=== PATIENT | female | born 1945 | race Caucasian/White ===

== ENCOUNTER 2022-02-14 13:29 | Observation (INO) | payer OTHER ==
[~2022-02-14] VITALS: Ht 162.6 cm; Wt 72.2 kg
[2022-02-14 13:53] LABS: BASOPHILS ABSOLUTE AUTO 0.06 K/mm3 (0.00-0.23); BASOPHILS PERCENT AUTO 1 % (0-2); EOSINOPHILS ABSOLUTE AUTO 0.04 K/mm3 (0.00-0.68); EOSINOPHILS PERCENT AUTO 0 % (0-6); Hematocrit 38.6 % (33.0-51.0); Hemoglobin 12.7 g/dL (11.5-16.0); IMMATURE GRAN ABSOLUTE AUTO 0.05 K/mm3 (0.00-0.10); IMMATURE GRAN PERCENT AUTO 0 % (0-1); LYMPHOCYTES ABSOLUTE AUTO 0.89 K/mm3 (0.84-5.20); LYMPHOCYTES PERCENT AUTO 7 % (21-46); MONOCYTES PERCENT AUTO 6 % (4-13); Mean Corpuscular HGB 32.8 pg (26.0-34.0); Mean Corpuscular HGB Conc 32.9 g/dL (31.5-36.5); Mean Corpuscular Volume 100 fL (80-100); Mean Platelet Volume 9.1 fL (9.1-12.4); NEUTROPHILS ABSOLUTE AUTO 10.71 K/mm3 (1.96-9.15); NEUTROPHILS PERCENT AUTO 85 % (41-73); Platelet Count 216 K/mm3 (150-400); RDW Coefficient Variation 12.8 % (11.7-14.2); Red Blood Cell Count 3.87 M/mm3 (3.80-5.20); White Blood Cell Count 12.55 K/mm3 (4.00-11.30)
[2022-02-14] MEDS ORDERED: LIPITOR80 MG PO (13:54)
[2022-02-14] MEDS ORDERED: CALCIUM CARBON650 MG PO (13:56)
[2022-02-14] MEDS ORDERED: FAMO20 PO (13:57)
[2022-02-14] MEDS ORDERED: DIGOX125 MC1 PO (13:57)
[2022-02-14] MEDS ORDERED: ELIQUIS5 M3 PO (13:57)
[2022-02-14] MEDS ORDERED: FISH OIL-VIT D1 EACH PO (13:58)
[2022-02-14] MEDS ORDERED: B-12500 MC2 PO (13:59)
[2022-02-14] MEDS ORDERED: ERGO50000 PO (13:59)
[2022-02-14] MEDS ORDERED: Acetaminophen325 M1 PO (14:00)
[2022-02-14 14:11] LABS: Albumin, Blood 3.4 g/dL (3.4-5.0); Albumin/Globulin Ratio 0.8 (0.8-1.8); Bilirubin, Total 0.8 mg/dL (0.1-1.0); Bun/Creatinine Ratio 16.8 (12.0-20.0); Calcium, Blood 9.2 mg/dL (8.5-10.1); Creatinine, Blood 0.95 mg/dL (0.40-1.00); Globulin, Blood 4.4 g/dL (2.2-4.0); Potassium, Blood 3.9 mmol/L (3.5-5.5); Total Protein, Blood 7.8 g/dL (6.4-8.2)
[2022-02-14 14:37] LABS: Source, Urine Straight Cath
[2022-02-14 14:47] LABS: Bilirubin, Urine Neg (Neg); Blood, Urine 1+ (Neg); Glucose Qualitative, Urine Neg (Neg); Ketones, Urine Neg (Neg); Leukocyte Esterase, Urine Neg (Neg); Nitrite, Urine Neg (Neg); Protein, Urine 2+ (Neg); Urobilinogen, Urine NORM (Normal)
[2022-02-14 14:53] LABS: Appearance, Urine Hazy (Clear); Color, Urine Pale Yellow (P-Yellow)
[2022-02-14 14:54] LABS: Amorphous Light (0-Heavy); Bacteria Few /hpf; Mucus Light (0-Heavy); Squamous Epithelial Cells Few /hpf (Few); White Blood Cells, Urine 0-2 /hpf (0-5); Yeast/Fungi Urine Few /hpf
[2022-02-14 14:55] LABS: Granular Casts 0-2 /lpf (0); Hyaline Casts 0-2 /lpf (0-2)
[2022-02-14 17:12] LABS: International Normalized Ratio 1.14; Prothrombin Time Results 11.9 Sec (9.7-11.5)
--- NOTE | 2022-02-14 18:51 | NUR ---
PT ADMITTED TO ROOM . H/R IRRREG. NO MUIRMER NOTED. LUNGS CLEAR, ON R/A. A/O X3 PLEASANT DENIES CHEST PAIN OR PRESSURE. ON HEPARIN DRIP. VERIFIED IS ON 15/ U/KG. 18.6 ML PER HR. SPOKE TO DR CHANDLER. HE HAS JUST ORDERED CARDIAC CONSULT. OKAY EAT TONITE. NPO MIDNITE FOR ANY POSSIBLE PROCEDURE. BED IN LOW POSITOIN, CALL LITE IN REACH, CALLS APPROP
[2022-02-15 04:24] LABS: BASOPHILS ABSOLUTE AUTO 0.06 K/mm3 (0.00-0.23); BASOPHILS PERCENT AUTO 1 % (0-2); EOSINOPHILS ABSOLUTE AUTO 0.17 K/mm3 (0.00-0.68); EOSINOPHILS PERCENT AUTO 2 % (0-6); Hematocrit 32.6 % (33.0-51.0); Hemoglobin 10.8 g/dL (11.5-16.0); IMMATURE GRAN ABSOLUTE AUTO 0.01 K/mm3 (0.00-0.10); IMMATURE GRAN PERCENT AUTO 0 % (0-1); LYMPHOCYTES ABSOLUTE AUTO 2.81 K/mm3 (0.84-5.20); LYMPHOCYTES PERCENT AUTO 31 % (21-46); MONOCYTES ABSOLUTE AUTO 0.95 K/mm3 (0.16-1.47); MONOCYTES PERCENT AUTO 10 % (4-13); Mean Corpuscular HGB 32.8 pg (26.0-34.0); Mean Corpuscular HGB Conc 33.1 g/dL (31.5-36.5); Mean Corpuscular Volume 99 fL (80-100); NEUTROPHILS ABSOLUTE AUTO 5.18 K/mm3 (1.96-9.15); NEUTROPHILS PERCENT AUTO 56 % (41-73); Platelet Count 192 K/mm3 (150-400); RDW Coefficient Variation 12.9 % (11.7-14.2); RDW Standard Deviation 47.4 fL (35.1-46.3); Red Blood Cell Count 3.29 M/mm3 (3.80-5.20); White Blood Cell Count 9.18 K/mm3 (4.00-11.30)
[2022-02-15 04:43] LABS: Anion Gap 6 mmol/L (6-16); Blood Urea Nitrogen 14 mg/dL (8-24); Bun/Creatinine Ratio 19.1 (12.0-20.0); CHOL/HDL RATIO 2.5; CO2, Blood 26 mmol/L (21-32); Calcium, Blood 8.5 mg/dL (8.5-10.1); Chloride, Blood 109 mmol/L (98-108); Cholesterol 115 mg/dL (50-200); Creatinine, Blood 0.73 mg/dL (0.40-1.00); Glomerular Filtration Rate >60 (60-); Glucose, Blood 95 mg/dL (70-99); HDL Cholesterol 46 mg/dL (>39); LDL/HDL RATIO 1.1; Low Density Lipoprotein Chol 51 mg/dL (0-110); Potassium, Blood 3.5 mmol/L (3.5-5.5); Sodium, Blood 141 mmol/L (136-145); Triglycerides 91 mg/dL (30-160); Very Low Density Lipoprot Chol 18 mg/dL (6-32)
--- NOTE | 2022-02-15 06:37 | NUR ---
PT IS ASLEEP THIS MORNING. PT CAME IN FROM THE ED AFTER HAVING A FALL AT HOME BUT WAS FOUND TO HAVE ELEVATED TROPONIN LEVELS. PT WAS ADMITTED FOR FURTHER WORKUP. PT TROPONIN LEVELS HAVE BEEN FLUCTUATING OVERNIGHT, NOTIFIED THE MD IN WHICH THEY PLACED ORDERS TO TREND UNTIL CARDIOLOGY CONSULT IN THE AM. PT CURRENTLY ON HEPARIN DRIP AND TOLERATING WELL, TITRATION PER PHARMACY. PT DID HAVE A COUPLE OF SECONDS OF PAUSED BEATS DURING THE SHIFT, MD NOTIFIED NO ORDERS RECIEVED. CONTINUING TO MONITOR. PT DID NOT C/O SOB, CHEST PAIN, OR N/V DURING THE SHIFT. OTHERWISE VITALS HAVE BEEN STABLE, TROP LEVELS CONTINUE TO BE IN THE CRITICAL LEVELS BUT ARE TRENDING IN THE RIGHT DIRECTION. PT ON RA, TELE- AFIB 70-80'S, PASSING GAS AND URINATING JUST FINE, PT CAN WALK SBA WITH FWW.
--- NOTE | 2022-02-15 08:00 | NUR ---
PT PLEASANT THIS MORNING. DENIES CHEST PAIN, PRESSURE, DISCOMFORT. IS PRESENTLY ON HEPARIN DRIP PER PHA RATES. VERIFIED. PENDING VISIT FROM DR KIRK, CARDIOLOGY. SHE A/O X3 TALKATIVE. H/R IRREGULAR, MURMER NOTED. PER TELE AFIB AT 69. LUNGS CLEAR, RESP EASY, UNLABORED. ON R.A. BT X4 LAST BM YEST PER PT. VOIDS BATHROOM. 1 LIGHT ASST. BED IN LOW POSITIOIN, CALL LITE IN REACH, BED ALARM ON FOR SAFETY
--- NOTE | 2022-02-15 09:59 | NUR ---
PER PHA, TO CONTINUE THE HEPARIN AT SAME RATE.
--- NOTE | 2022-02-15 12:09 | NUR ---
CLLED DR KIRK, CARDIOLOGY. NO INTERVENTION EXPECTED. OKAY RESTART DIET. D/C HEPARIN DRIP AND HAVE HOUSE START LOVENOX. CALLED TO DR RADFORD
--- NOTE | 2022-02-15 15:14 | NUR ---
DR KIRK, BAND SALVAGER, IN STATES OKAY RELEASE PER HIM. HE HAS FOLLOWUP IN MARCH ALREADY SCHEDULED. CALLED DR RADFORD, HE OKAY D/C IF [facility] CAN TAKE BACK, AND IF CAN PASS BASELINE AT [facility]YS [facility]. CALLED PHYS THERAPY, THEY TO COME SEE. CALLED [facility] TOLBERT, SAYS CAN TAKE PT BACK IF NO NEW MEDS AND IS TO BASELINE. PHYSICAL THERAPY CAME TO SEE. SHE AT [facility], WALKED OKAY WITH FWW. CALLED DR RADFORD, UPDATED ON PHYSICAL THERAPY, [facility] NAIL[facility]. HE STATES NO NEW MEDS. WILL WORK ON D/C. WE WILL NEED TRANSPORT. UPDATED INTELLIGENCE DIRECTOR
--- NOTE | 2022-02-15 17:45 | NUR ---
DISCHARGE REVIEWED WITH PT. SHE VERBALIZED UNDERSTANDING MEDS AND INST. PT PULLED HER OWN IV. INTACT. I WRAPPED. PT WAS ON HEPARIN EARLIER IN DAY. DID BLEED SOME. BLEEDING HAS STOPPED. TELE REMOVED AND RETURNED. CALLED AND TALKED TO DAUGHTER TO UPDATE PLAN. COPY OF DISCHARGE FAXED TO [facility]. PT TO BE WHEELED HOME BY [employer] [facility].
--- NOTE | 2022-02-15 18:01 | NUR ---
PT TRANSPORT OUT DOOR AT 1750
== END 2022-02-15 17:54 | disposition home or self-care (01) ==
LOC: ER 13:29 → MEDS 13:30
PROVIDERS: Emergency Medicine; ADMIT Internal Medicine
DX: I21.4 Non-ST elevation (NSTEMI) myocardial infarction (principal); I48.20 Chronic atrial fibrillation, unspecified; Z79.01 Long term (current) use of anticoagulants; I08.0 Rheumatic disorders of both mitral and aortic valves; I65.22 Occlusion and stenosis of left carotid artery; I25.10 Atherosclerotic heart disease of native coronary artery without angina pectoris; I25.2 Old myocardial infarction; K21.9 Gastro-esophageal reflux disease without esophagitis; D72.829 Elevated white blood cell count, unspecified; Z86.73 Personal history of transient ischemic attack (TIA), and cerebral infarction without residual deficits
CPT/HCPCS: 36415; 51701; 71045; 80048; 80053; 80061; 81001; 83036; 83880; 84443; 84484; 85025; 85610; 85730; 87086; 93005; 93010; 93308; 93321; 96374; 96376; 97161; 97530; 99285-25; A9270; G0378; J1644; J7030

== ENCOUNTER → 2023-01-06 | Outpatient (CLI) | payer OTHER ==
[~2023-01-06] MED LIST: Acetaminophen325 M1 PO; B-12500 MC2 PO; CALCIUM CARBON650 MG PO; DIGOX125 MC1 PO; ELIQUIS5 M3 PO; ERGO50000 PO; FAMO20 PO; FISH OIL-VIT D1 EACH PO; LIPITOR80 MG PO
[2023-01-06 15:47] LABS: Appearance, Urine Clear (Clear); Bilirubin, Urine Neg (Neg); Blood, Urine Neg (Neg); Color, Urine Yellow (P-Yellow); Glucose Qualitative, Urine Neg (Neg); Ketones, Urine 1+ (Neg); Leukocyte Esterase, Urine 2+ (Neg); Nitrite, Urine Neg (Neg); Protein, Urine 1+ (Neg); Specific Gravity, Urine 1.015 (1.003-1.022); Urobilinogen, Urine NORM (Normal)
[2023-01-06 15:57] LABS: Red Blood Cells, Urine 0-2 /hpf (0-2)
[2023-01-06 15:58] LABS: Bacteria Few /hpf; Squamous Epithelial Cells Few /hpf (Few)
== END | disposition home or self-care (01) ==
LOC: LAB 12:35 → LAB SHORT 12:35
PROVIDERS: Physician Assistant
DX: N39.0 Urinary tract infection, site not specified (principal)
CPT/HCPCS: 81001; 87086

== ENCOUNTER 2023-02-28 06:46 | Emergency (ER) | payer OTHER ==
[~2023-02-28] VITALS: Ht 154.9 cm; Wt 72.6 kg
[2023-02-28 09:11] LABS: BASOPHILS ABSOLUTE AUTO 0.03 K/mm3 (0.00-0.23); BASOPHILS PERCENT AUTO 0 % (0-2); EOSINOPHILS ABSOLUTE AUTO 0.01 K/mm3 (0.00-0.68); EOSINOPHILS PERCENT AUTO 0 % (0-6); Hematocrit 30.9 % (33.0-51.0); Hemoglobin 10.1 g/dL (11.5-16.0); IMMATURE GRAN ABSOLUTE AUTO 0.03 K/mm3 (0.00-0.10); IMMATURE GRAN PERCENT AUTO 0 % (0-1); LYMPHOCYTES ABSOLUTE AUTO 1.38 K/mm3 (0.84-5.20); LYMPHOCYTES PERCENT AUTO 12 % (21-46); MONOCYTES ABSOLUTE AUTO 1.18 K/mm3 (0.16-1.47); MONOCYTES PERCENT AUTO 10 % (4-13); Mean Corpuscular HGB 32.2 pg (26.0-34.0); Mean Corpuscular HGB Conc 32.7 g/dL (31.5-36.5); Mean Corpuscular Volume 98 fL (80-100); Mean Platelet Volume 9.4 fL (9.1-12.4); NEUTROPHILS ABSOLUTE AUTO 9.19 K/mm3 (1.96-9.15); NEUTROPHILS PERCENT AUTO 78 % (41-73); Platelet Count 184 K/mm3 (150-400); RDW Coefficient Variation 13.9 % (11.7-14.2); Red Blood Cell Count 3.14 M/mm3 (3.80-5.20); White Blood Cell Count 11.82 K/mm3 (4.00-11.30)
[2023-02-28 09:29] LABS: Albumin, Blood 3.6 g/dL (3.4-5.0); Albumin/Globulin Ratio 0.8 (0.8-1.8); Bilirubin, Total 1.1 mg/dL (0.1-1.0); Bun/Creatinine Ratio 24.1 (12.0-20.0); Calcium, Blood 9.3 mg/dL (8.5-10.1); Creatinine, Blood 0.96 mg/dL (0.40-1.00); Globulin, Blood 4.3 g/dL (2.2-4.0); Potassium, Blood 4.1 mmol/L (3.5-5.5); Total Protein, Blood 7.9 g/dL (6.4-8.2)
[2023-02-28 09:55] LABS: Source, Urine Straight Cath
[2023-02-28 10:06] LABS: Bilirubin, Urine Neg (Neg); Blood, Urine Neg (Neg); Glucose Qualitative, Urine Neg (Neg); Ketones, Urine Neg (Neg); Leukocyte Esterase, Urine Neg (Neg); Nitrite, Urine Neg (Neg); Protein, Urine 2+ (Neg); Urobilinogen, Urine NORM (Normal)
[2023-02-28 10:35] LABS: Appearance, Urine Hazy (Clear); Color, Urine Yellow (P-Yellow)
[2023-02-28 10:36] LABS: Mucus Light (0-Heavy); Squamous Epithelial Cells Few /hpf (Few)
[2023-02-28 10:37] LABS: Bacteria Rare /hpf; Red Blood Cells, Urine 0-2 /hpf (0-2)
[2023-02-28] MEDS ORDERED: OXYC5 PO (10:51)
[2023-02-28] MEDS ORDERED: Acetaminophen650 M1 PO (10:51)
== END 2023-02-28 11:48 | disposition home or self-care (01) ==
LOC: ER 06:46
PROVIDERS: Emergency Medicine
DX: S42.251A Displaced fracture of greater tuberosity of right humerus, initial encounter for closed fracture (principal); S42.211A Unspecified displaced fracture of surgical neck of right humerus, initial encounter for closed fracture; M25.512 Pain in left shoulder; W01.0XXA Fall on same level from slipping, tripping and stumbling without subsequent striking against object, initial encounter
CPT/HCPCS: 36415; 70450; 72125; 73030; 80053; 81001; 85025; 93005; 93010; 96374; 96375; 99284-25; J1885; J2270; P9612

== ENCOUNTER 2023-02-28 13:43 | Emergency (ER) | payer OTHER ==
[~2023-02-28] VITALS: Ht 162.6 cm; Wt 69.0 kg
[~2023-02-28 13:43] MED LIST changes: +Acetaminophen650 M1 PO; +OXYC5 PO
[2023-02-28 15:06] LABS: BASOPHILS ABSOLUTE AUTO 0.04 K/mm3 (0.00-0.23); BASOPHILS PERCENT AUTO 0 % (0-2); EOSINOPHILS ABSOLUTE AUTO 0.02 K/mm3 (0.00-0.68); EOSINOPHILS PERCENT AUTO 0 % (0-6); Hematocrit 28.7 % (33.0-51.0); Hemoglobin 9.5 g/dL (11.5-16.0); IMMATURE GRAN ABSOLUTE AUTO 0.04 K/mm3 (0.00-0.10); IMMATURE GRAN PERCENT AUTO 0 % (0-1); LYMPHOCYTES PERCENT AUTO 16 % (21-46); MONOCYTES ABSOLUTE AUTO 1.39 K/mm3 (0.16-1.47); MONOCYTES PERCENT AUTO 14 % (4-13); Mean Corpuscular HGB 32.8 pg (26.0-34.0); Mean Corpuscular HGB Conc 33.1 g/dL (31.5-36.5); Mean Corpuscular Volume 99 fL (80-100); Mean Platelet Volume 9.6 fL (9.1-12.4); NEUTROPHILS ABSOLUTE AUTO 6.85 K/mm3 (1.96-9.15); NEUTROPHILS PERCENT AUTO 69 % (41-73); Platelet Count 172 K/mm3 (150-400); RDW Coefficient Variation 13.9 % (11.7-14.2); RDW Standard Deviation 50.1 fL (35.1-46.3); White Blood Cell Count 9.94 K/mm3 (4.00-11.30)
[2023-02-28 15:11] LABS: Albumin, Blood 3.3 g/dL (3.4-5.0); Albumin/Globulin Ratio 0.8 (0.8-1.8); Bilirubin, Total 1.1 mg/dL (0.1-1.0); Bun/Creatinine Ratio 23.9 (12.0-20.0); Calcium, Blood 8.9 mg/dL (8.5-10.1); Creatinine, Blood 1.09 mg/dL (0.40-1.00); Potassium, Blood 4.4 mmol/L (3.5-5.5); Total Protein, Blood 7.3 g/dL (6.4-8.2)
== END 2023-02-28 19:50 | disposition home or self-care (01) ==
LOC: ER 13:43
PROVIDERS: Emergency Medicine
DX: R55 Syncope and collapse (principal)
CPT/HCPCS: 36415; 70450; 73030; 73060; 80053; 83880; 84484; 85025; 93005; 93010; 99285-25; J7030

== ENCOUNTER 2023-03-04 16:36 | Emergency (ER) | payer OTHER ==
[~2023-03-04] VITALS: Ht 167.6 cm; Wt 77.1 kg
[2023-03-04] MEDS ORDERED: OXAYDO5 M1 PO (22:32)
== END 2023-03-04 23:38 | disposition home or self-care (01) ==
LOC: ER 16:36
DX: S42.422A Displaced comminuted supracondylar fracture without intercondylar fracture of left humerus, initial encounter for closed fracture (principal); W19.XXXA Unspecified fall, initial encounter; Z79.899 Other long term (current) drug therapy; Z79.01 Long term (current) use of anticoagulants
CPT/HCPCS: 29105; 36415; 73060; 73070; 73100; 93005; 93010; 99285-25

== ENCOUNTER 2023-03-27 11:13 | Observation (INO) | payer OTHER ==
[~2023-03-27] VITALS: Ht 162.6 cm; Wt 70.3 kg
[2023-03-27] VITALS (17 sets, daily range): BP systolic 78–146; BP diastolic 28–96
[~2023-03-27 11:13] MED LIST changes: +OXAYDO5 M1 PO
--- NOTE | 2023-03-27 13:03 | NUR ---
PRE-OP NOTE PT A&OX4 BUT SLEEPY, FOLLOWS COMMANDS AND ANSWERS QUESTIONS APPROPRIATELY. VSS, BREATHING RA, NO COMPLAINTS. MARKED BRUISING ON R UPPER ARM TO ELBOW, PT ARRIVED WEARING A SLING ON R ELBOW AND SPLINT ON L ELBOW. EDEMATOUS ABOVE SANDRA WRAP ON R ARM AND SLIGHT PINK COLOR TO SKIN UNDERNEATH AND JUST ABLVE ELBOW ON SWELLING. SWELLING TO BLE, SASHA HOSE PLACED IN ADDITION TO SCD PER DR HARP. Patient confirms NPO status and agrees with scheduled surgery.PT ARRIVED IN AND REQUIRED 2 PERSON ASSIST TO MOVE. DENTURES REMOVED PRIOR TO SURGERY AND SENT TO PACU, IN BRONCH ROOM IN SDU, ALL OTHER BELONGINGS PLACED UNDER STRETCHER. Pre-Op teaching done. Pt verbalizes understanding. Patient States Post-Procedure ride home has been arranged.
[2023-03-28 00:33] VITALS: BP 90/76
[2023-03-28 05:29] VITALS: BP 83/46
[2023-03-28 05:30] VITALS: BP 93/53
[2023-03-28 07:02] VITALS: BP 97/60
--- NOTE | 2023-03-28 07:10 | NUR ---
SHIFT SUMMARY PT POD 0 R ORIF. PT HAS DONE WELL OVERNIGHT PAIN INITIALLY AFTER COMING BACK FROM OR, MEDICATED WITH OXYCODONE WITH AFFECT. PT BLOOD PRESSURES HAVE BEEN SOFT, MAP ABOVE 65. DR. HARP WAS MADE AWARE OF PT BLOOD PRESSURE BEFORE SHE LEFT PACU, AND SHE OK'D FOR PT TO LEAVE PACU AND TO BE ADMITTED WITH LOWER BLOOD PRESSURES, PT HAS BEEN ASYMPTOMATIC. PT TOLERATING PO INTAKE AND HAS BEEN VOIDING. PT OCCASIONALLY INCONTINENT OF URINE. NON WEIGHT BEARING TO RIGHT ARM. ARM WRAPED IN SANDRA WRAP, AND EXT ELEVATED. PT REPORTS SOME NUMBNESS BUT CAN STILL FEEL SENSATION ABLE TO WIGGLE FINGERS. NO ACUTE CHANGES OVERNIGHT, BED IN LOWEST POSITION, CALL LIGHT WITHIN REACH.
[2023-03-28 08:53] VITALS: BP 100/55
[2023-03-28] MEDS ORDERED: OXYC5 (08:57)
[2023-03-28] MEDS ORDERED: OXYC5 PO (08:58)
[2023-03-28 09:52] LABS: BASOPHILS ABSOLUTE AUTO 0.03 K/mm3 (0.00-0.23); BASOPHILS PERCENT AUTO 0 % (0-2); EOSINOPHILS PERCENT AUTO 0 % (0-6); Hematocrit 25.7 % (33.0-51.0); IMMATURE GRAN ABSOLUTE AUTO 0.03 K/mm3 (0.00-0.10); IMMATURE GRAN PERCENT AUTO 0 % (0-1); LYMPHOCYTES ABSOLUTE AUTO 1.33 K/mm3 (0.84-5.20); LYMPHOCYTES PERCENT AUTO 13 % (21-46); MONOCYTES ABSOLUTE AUTO 1.03 K/mm3 (0.16-1.47); MONOCYTES PERCENT AUTO 10 % (4-13); Mean Corpuscular HGB 32.9 pg (26.0-34.0); Mean Corpuscular HGB Conc 31.1 g/dL (31.5-36.5); Mean Corpuscular Volume 106 fL (80-100); Mean Platelet Volume 9.2 fL (9.1-12.4); NEUTROPHILS ABSOLUTE AUTO 7.85 K/mm3 (1.96-9.15); NEUTROPHILS PERCENT AUTO 76 % (41-73); Platelet Count 221 K/mm3 (150-400); RDW Coefficient Variation 15.9 % (11.7-14.2); RDW Standard Deviation 61.8 fL (35.1-46.3); Red Blood Cell Count 2.43 M/mm3 (3.80-5.20); White Blood Cell Count 10.27 K/mm3 (4.00-11.30)
--- NOTE | 2023-03-28 12:06 | NUR ---
DISCHARGE SUMMARY PT A&OX4, VSS/RA, KIRSTEN PO, VOIDING, AMB 2 PP MOD ASSIST/TRANSFER TO BSC/WC, ASSISTED WITH DRESSING, PAIN MANAGED, IV DC'D. DC INS PROVIDED. PT REP UNDERSTANDING THOSE INSTRUCTIONS; INSTRUCTIONS REVIEWED WITH ROJAS CRUZ CALLICOON ON TELEPHONE: NAVI NWB, RUE SLING ON, LUE DRESSING CDI/ELEVATED ON PILLOW. LEFT VIA PT'S WC WITH ALL PERSONAL POSSESSIONS INCLUDING DC PACKET/1 NARC SCRIPT FOR TRANSPORT WITH DC [email or web address] [facility] VAN (HEALTH AND SAFETY INSTRUCTOR/ROSALIND).
--- NOTE | 2023-03-30 14:42 | NUR ---
03/30/23 1442 Alize Bhagat VERIFICATIONS: EDIT CHART.
== END 2023-03-28 11:55 | disposition home or self-care (01) ==
LOC: ORSCMMR 11:13 → ORD 12:45 → SURS 22:40 → ORSCMMR 22:40 → SURS 22:41
PROVIDERS: ADMIT Orthopaedic Surgery
DX: S42.422A Displaced comminuted supracondylar fracture without intercondylar fracture of left humerus, initial encounter for closed fracture (principal); S42.211A Unspecified displaced fracture of surgical neck of right humerus, initial encounter for closed fracture; W18.30XA Fall on same level, unspecified, initial encounter; I48.91 Unspecified atrial fibrillation; I10 Essential (primary) hypertension; I25.2 Old myocardial infarction; Z79.899 Other long term (current) drug therapy
CPT/HCPCS: 36415; 85025; 97110; 97116; 97162; A9270; C1713; C1769; J0690; J1100; J1885; J2370; J2405; J2704; J3010; J7120

== ENCOUNTER → 2023-08-25 | Outpatient (CLI) | payer OTHER ==
[~2023-08-25] MED LIST changes: +OXYC5
[2023-08-26 16:54] LABS: Appearance, Urine Clear (Clear); Bilirubin, Urine Neg (Neg); Blood, Urine 1+ (Neg); Glucose Qualitative, Urine Neg (Neg); Ketones, Urine Neg (Neg); Leukocyte Esterase, Urine 3+ (Neg); Nitrite, Urine Neg (Neg); Protein, Urine 1+ (Neg); Specific Gravity, Urine 1.015 (1.003-1.022); Urobilinogen, Urine NORM (Normal)
[2023-08-26 17:09] LABS: Color, Urine Pale Yellow (P-Yellow)
[2023-08-26 17:10] LABS: Bacteria Few /hpf; Squamous Epithelial Cells Few /hpf (Few)
== END | disposition home or self-care (01) ==
LOC: LAB SHORT 15:30 → LAB 15:30 → LAB SHORT 08-26 14:39
PROVIDERS: Physician Assistant
DX: N39.0 Urinary tract infection, site not specified (principal)
CPT/HCPCS: 81001; 87086

== ENCOUNTER → 2023-12-07 | Outpatient (CLI) | payer OTHER ==
[2023-12-08 12:37] LABS: Source, Urine Clean Catch
[2023-12-08 14:09] LABS: Appearance, Urine Clear (Clear); Bilirubin, Urine Neg (Neg); Blood, Urine Neg (Neg); Color, Urine Yellow (P-Yellow); Glucose Qualitative, Urine Neg (Neg); Ketones, Urine Neg (Neg); Leukocyte Esterase, Urine 1+ (Neg); Nitrite, Urine Neg (Neg); Protein, Urine 2+ (Neg); Urobilinogen, Urine NORM (Normal)
[2023-12-08 14:19] LABS: Bacteria Few /hpf; Red Blood Cells, Urine 0-2 /hpf (0-2); Squamous Epithelial Cells Few /hpf (Few)
== END | disposition home or self-care (01) ==
LOC: LAB 05:30 → LAB SHORT 05:30
PROVIDERS: Physician Assistant
DX: N39.0 Urinary tract infection, site not specified (principal)
CPT/HCPCS: 81001; 87086

== ENCOUNTER 2024-01-16 16:58 | Inpatient (IN) | payer OTHER ==
[~2024-01-16] VITALS: Ht 162.6 cm; Wt 67.6 kg
[2024-01-16] VITALS (13 sets, daily range): BP systolic 82–134; BP diastolic 32–60
[2024-01-16 17:35] LABS: Calcium, Ionized (POC) 0.99 mmol/L (1.10-1.46); Chloride (POC) 105 mmol/L (98-108); Creatinine (POC) 0.9 mg/dL (0.6-1.0); Glucose (ISTAT POC) 124 mg/dL (70-99); Hemoglobin (POC) 10.5 g/dL (12.0-16.0); Potassium (POC) 6.2 mmol/L (3.5-5.5); Sodium (POC) 136 mmol/L (135-148); Total CO2 (POC) 24 mmol/L (21-32)
[2024-01-16] MEDS ORDERED: Dextrose 50% 50 ML Syringe IV ONE (17:35)
[2024-01-16] MEDS ORDERED: Sodium Zirconium Cyclosilicate 10 GM Packet PO ONE (17:35)
[2024-01-16] MEDS ORDERED: Calcium Gluconate 10% 100 MG/ML INJ IV ONE (17:35)
[2024-01-16] MEDS ORDERED: Sodium Bicarb 8.4% 1 MEQ/ML 50 ML Vial IV ONE (17:35)
[2024-01-16] MEDS ORDERED: Insulin Regular 100 Unit/ML 1ML Dose IV ONE (17:40)
[2024-01-16] MEDS ORDERED: Calcium Gluconate 10% 1,000 MG in NS 50 ML IV ONE (17:45)
[2024-01-16 17:59] LABS: BASOPHILS ABSOLUTE AUTO 0.04 K/mm3 (0.00-0.23); BASOPHILS PERCENT AUTO 1 % (0-2); EOSINOPHILS ABSOLUTE AUTO 0.11 K/mm3 (0.00-0.68); EOSINOPHILS PERCENT AUTO 2 % (0-6); Hematocrit 35.2 % (33.0-51.0); Hemoglobin 11.4 g/dL (11.5-16.0); IMMATURE GRAN ABSOLUTE AUTO 0.02 K/mm3 (0.00-0.10); IMMATURE GRAN PERCENT AUTO 0 % (0-1); LYMPHOCYTES ABSOLUTE AUTO 1.22 K/mm3 (0.84-5.20); LYMPHOCYTES PERCENT AUTO 17 % (21-46); MONOCYTES PERCENT AUTO 10 % (4-13); Mean Corpuscular HGB 31.7 pg (26.0-34.0); Mean Corpuscular HGB Conc 32.4 g/dL (31.5-36.5); Mean Corpuscular Volume 98 fL (80-100); Mean Platelet Volume 9.7 fL (9.1-12.4); NEUTROPHILS ABSOLUTE AUTO 5.12 K/mm3 (1.96-9.15); NEUTROPHILS PERCENT AUTO 71 % (41-73); Platelet Count 151 K/mm3 (150-400); RDW Coefficient Variation 13.9 % (11.7-14.2); RDW Standard Deviation 49.4 fL (35.1-46.3); White Blood Cell Count 7.21 K/mm3 (4.00-11.30)
[2024-01-16] MEDS ORDERED: Dopamine/Dextrose 250 ML IV SCH (18:15)
[2024-01-16 18:26] LABS: Magnesium, Blood 1.8 mg/dL (1.6-2.4)
[2024-01-16 18:35] LABS: Alanine Aminotransfer (ALT/SGP 96 U/L (12-78); Albumin, Blood 3.1 g/dL (3.4-5.0); Albumin/Globulin Ratio 0.7 (0.8-1.8); Alk Phos 93 U/L (50-136); Anion Gap 3 mmol/L (6-16); Aspartate Aminotrans (AST/SGOT 138 U/L (12-37); Bilirubin, Total 0.7 mg/dL (0.1-1.0); Blood Urea Nitrogen 23 mg/dL (8-24); Bun/Creatinine Ratio 25.6 (12.0-20.0); CO2, Blood 27 mmol/L (21-32); Chloride, Blood 106 mmol/L (98-108); Digoxin (Lanoxin) 0.67 ug/mL (0.80-2.00); Globulin, Blood 4.4 g/dL (2.2-4.0); Glomerular Filtration Rate 66 (60-); Glucose, Blood 133 mg/dL (70-99); Potassium, Blood 4.4 mmol/L (3.5-5.5); Sodium, Blood 136 mmol/L (136-145); Total Protein, Blood 7.5 g/dL (6.4-8.2)
[2024-01-16] MEDS ORDERED: FLU VACC QS2023-24(6MOS UP)/PF 60 MCG/0.5 ML SYRINGE IM ONE (18:45)
[2024-01-16] MEDS ORDERED: NS 1,000 ML IV SCH (19:00)
[2024-01-16] MEDS ORDERED: Phentolamine Mesylate 5 MG/2 ML Vial SC ONE (20:25)
[2024-01-16] MEDS ORDERED: Melatonin 5 MG Tablet PO PRN (21:15)
[2024-01-16] MEDS ORDERED: NS 1,000 ML IV ONE ×2 (21:25→22:52)
--- NOTE | 2024-01-16 21:52 | NUR ---
ASSUMPTION OF CARE REPORT RECEIVED FROM WOVEN WOOD SHADE ASSEMBLER. PT TO ICU VIA HOSPITAL BED, TRANSFERRED TO ICU BED VIA SLIDER SHEET. PT ALERT AND ORIENTED X 4, SLEEPY AT TIMES. PT ANSWERS QUESTIONS APPRORPRIATELY, FOLLOWS COMMANDS AND IS ABLE TO MAKE NEEDS KNOWN. PT MOVES ALL EXTREMITIES EQUALLY BILATERALLY. HR 50'S AFIB, DR. BAR AT THE BEDSIDE, DOPAMINE INFUSING AT 5MCG/KG/MIN, DECREASED TO 2MCG/KG/MIN PER . PT DENIES CP OR PRESSURE. PT ON 2L VIA NC, OXYGEN SATURATION >95%, LUNG SOUDNS CLEAR THROUGHOUT. ABD SOFT AND NONTENDER BOWEL TONES ACTIVE IN ALL FOUR QUADRATNS. PIV TO RIGHT UPPER ARM, AND RIGHT FOREARM. BED IN LOWEST POSITION, CALL LIGHT WITHIN REACH, CARE CONTINUES
[2024-01-16] MEDS ORDERED: Atropine Sulfate 0.1 MG/ML 10ML SYR ONE (21:57)
--- NOTE | 2024-01-16 22:15 | NUR ---
ASSISTED IN ROOM SECONDARY TO PT HAVING PAUSES, AND BECOMING SYMPTOMATIC. ZOLL PLACE TO PACE AT 70 WITH MILIAMPS AT 6 FOR CAPTURE. WITH SPEAKING WITH LINOTYPE MACHINIST MYRTLE - HOSPITALIST, REDUCED RATE TO 50 AND INCREASE IN DOPAMINE MADE. SEE PRIMARY RN'S NOTES FOR DETAILS. PT OBSERVED HAVING SEIZURE-LIKE EPISODE WITH FACIAL TWITCHING FOR APPROX 10-20 SECONDS. PT DOES NOT RESPOND TO VERBAL AT TIME. THIS ACTIVITY COORELATES WITH PAUSES NOTED PER CARDIAC MONITORING.
--- NOTE | 2024-01-16 22:16 | NUR ---
PT UPDATE PT HAVING MORE ECTOPY WITH PAUSES, LONGEST MEASURED AT 8-9 SECONDS. PT HAD ONE EPISODE OF UNRESPONSIVENESS WITH SIEZURE LIKE ACTIVITY OTHER THAN THE ONE EPISDOE PT REMAINS ALERT. CALL PLACED TO DR. HUFFMAN. DR. HUFFMAN TO COME IN FOR POSSIBLE TEMPORARY TRANSVENOUS PACEMAKER. ZOLL MONITOR PLACED, DOPAMINE INCREASED TO 5MCG/KG/MIN THEN TO 8MCG/KG/MIN PER MYRTLE BARBERING TEACHER. PT DENIES CP OR PRESSURE.
[2024-01-16] MEDS ORDERED: Heparin Sodium 1000 Units/ML 10ML MDV ONE (22:32)
[2024-01-16] MEDS ORDERED: NS 250 ML IV ONE (22:32)
--- NOTE | 2024-01-16 22:41 | NUR ---
PT UPDATE PT TO [facility] AT 2240 FOR TEMPORARY PACEMAKER PALCEMENT. ATTEMPTED TO CALL DAUGHTER, LEFT MESSAGE ASKING FOR A CALL BACK.
[2024-01-16] MEDS ORDERED: Midazolam HCl 1MG / ML 2ML Vial ONE (22:52)
[2024-01-16] MEDS ORDERED: FentaNYL Citrate 50 MCG/ML 2 ML Injection ONE (22:52)
[2024-01-16] MEDS ORDERED: CeFAZolin Sodium 2,000 MG VIAL ONE (22:53)
[2024-01-16] MEDS ORDERED: NS 100 ML IV ONE (22:53)
--- NOTE | 2024-01-16 23:41 | NUR ---
PT UPDATE PT BACK TO ICU FROM [facility] AT 2328 VIA HOSPITAL BED. PT SLEEPY BUT AROUSABLE. DOPAMINE OFF DURING PROCEDURE AT 2307. HR 50, PACED. TEMPORARY PACEMAKER IN PLACE TO [facility], AT 63CM. SETTINGS, RATE OF 50, OUTPUT 2.5 SENSE OF 2. BED IN LOWEST POSITION, CALL LIGHT WITHIN REACH, CARE CONTINUES.
[2024-01-17] VITALS (94 sets, daily range): BP systolic 86–153; BP diastolic 34–108
[2024-01-17] MEDS ORDERED: Acetaminophen 325 MG TABLET PO PRN (00:30)
[2024-01-17 04:03] LABS: BASOPHILS ABSOLUTE AUTO 0.03 K/mm3 (0.00-0.23); BASOPHILS PERCENT AUTO 0 % (0-2); EOSINOPHILS ABSOLUTE AUTO 0.15 K/mm3 (0.00-0.68); EOSINOPHILS PERCENT AUTO 2 % (0-6); Hematocrit 32.5 % (33.0-51.0); Hemoglobin 10.7 g/dL (11.5-16.0); IMMATURE GRAN ABSOLUTE AUTO 0.02 K/mm3 (0.00-0.10); IMMATURE GRAN PERCENT AUTO 0 % (0-1); LYMPHOCYTES ABSOLUTE AUTO 1.93 K/mm3 (0.84-5.20); LYMPHOCYTES PERCENT AUTO 23 % (21-46); MONOCYTES ABSOLUTE AUTO 0.77 K/mm3 (0.16-1.47); MONOCYTES PERCENT AUTO 9 % (4-13); Mean Corpuscular HGB 32.1 pg (26.0-34.0); Mean Corpuscular HGB Conc 32.9 g/dL (31.5-36.5); Mean Corpuscular Volume 98 fL (80-100); Mean Platelet Volume 9.7 fL (9.1-12.4); NEUTROPHILS ABSOLUTE AUTO 5.49 K/mm3 (1.96-9.15); NEUTROPHILS PERCENT AUTO 65 % (41-73); Platelet Count 137 K/mm3 (150-400); RDW Coefficient Variation 13.8 % (11.7-14.2); RDW Standard Deviation 48.8 fL (35.1-46.3); Red Blood Cell Count 3.33 M/mm3 (3.80-5.20); White Blood Cell Count 8.39 K/mm3 (4.00-11.30)
[2024-01-17 04:29] LABS: Albumin, Blood 2.9 g/dL (3.4-5.0); Albumin/Globulin Ratio 0.8 (0.8-1.8); Bilirubin, Total 0.8 mg/dL (0.1-1.0); Bun/Creatinine Ratio 27.7 (12.0-20.0); Calcium, Blood 8.7 mg/dL (8.5-10.1); Creatinine, Blood 0.83 mg/dL (0.40-1.00); Globulin, Blood 3.7 g/dL (2.2-4.0); Potassium, Blood 4.1 mmol/L (3.5-5.5); Total Protein, Blood 6.6 g/dL (6.4-8.2)
--- NOTE | 2024-01-17 05:40 | NUR ---
SHIFT SUMMARY PT RESTING IN BED, SLEEPING BUT AROUSABLE. PT ANSWERS QUESTIONS APPROPRIATELY, FOLLOWS COMMANDS AND IS ABLE TO MAKE NEEDS KNOWN. PT MOVES ALL EXTREMITIES EQUALLY BILATERALLY. HR 50'S PACED, TEMPORARY PACER IN PLACE AT 63, DRESSING CLEAN AND INTACT, SETTINGS: RATE 50, OUTPUT 3.0, SENSE 2.0. OUTPUT INCREASED FROM 2.5 TO 3.0 DUE TO LOSS OF CAPTURE. PT DENIES CP OR PRESSURE. PT ON 4L VIA NC, OXYGEN SATURATION >95%. ABDOMEN SOFT NONTENDER. PUREWICK AND ATTENDS IN PLACE WITH DARK YELLOW OUTPUT. PIV TO RIGHT UPPER ARM WITH NS INFUSING AT 75MLS/HR. PIV TO RIGHT FOREARM SL. BED IN LOWEST POSITION, CALL LIGHT WITHIN REACH, CARE CONTINUES.
--- NOTE | 2024-01-17 08:00 | NUR ---
CARE ASSUMPTION DURING BEDSIDE SHIFT REPORT W JULISSA THE PT IS SLEEPING COMFORTABLY IN BED BUT AWAKENS TO OUR VOICE. PT COMMUNICATING APPROPRIATELY W STAFF. PT HAS TRANSVENOUS PACEMAKER IN R SIDE OF HER NECK. PACER W SETTING 50/3.0/2.0 W MONITOR SHOWING 100% PACED AT 50 BPM. PT DENIES ANY PAIN OR NAUSEA. BP SOFT BUT MAINTAINING MAP >60. DR. MEZA AND DR. CARTER IN AND UPDATED ON PT'S HR AND BP, ORDERRS TO MAINTAIN MAP >60 BEFORE RESTARTING DOPAMINE. PROVIDERS UPDATED OF BIBASILAR CRACKLES W ORTHOPNEA NOTED BY THIS RN, FLUIDS STOPPED AND LASIX TO BEGIN TOMMOROW.
--- NOTE | 2024-01-17 12:02 | NUR ---
[facility] PROVIDER CONTACT DR. BAH CALLING REQUESTING UPDATE ON PT. PROVIDER UPDATED ON TRANSVENOUS PACEMAKER PLACEMENT AND DIGOXIN LEVEL. DR. BAH REQUESTING TO SPEAK W DR. BAR AT [phone]. THIS RN TO RELAY MESSAGE TO DR. BAR.
--- NOTE | 2024-01-17 12:45 | NUR ---
PROVIDER CONTACT DR. BAR AND [facility] RN AT BEDSIDE SPEAKING W THE PT AND THIS RN. DR. BAR ORDERING TO TURN PACEMAKER RATE DOWN TO 30 TO ASSESS THE PT'S NEED FOR PERMANENT PACEMAKER. DR. BAR AND RN EDUCATING THIS RN ON EXPECTED OUTCOMES AND GIVING VERBAL INSTRUCTIONS TO TURN THE PACEMAKER RATE BACK UP TO 50 BPM IF THE PT BECOMES HYPOTENSIVE OR HAS CHANGES IN MENTATION. MOVIE SHOT CAMERAMAN MAGDA AT BEDSIDE AT THIS TIME. DR. BAR GIVEN [facility] NAME AND NUMBER AT THIS TIME.
--- NOTE | 2024-01-17 17:02 | NUR ---
PROVIDER CONTACT DR. BAR NOTIFIED THAT PT IS HAVING LONG PERIODS WHERE SHE IS 100% PACED AT 30 BPM. VERBAL INSTRUCTIONS TO TURN PACER UP TO 50 BPM AND THE PROVIDERS INTENT ON PLACING PERMANENT PACEMAKER IN THE AM.
--- NOTE | 2024-01-17 18:33 | NUR ---
DAY SHIFT ASHISH PT HAS BEEN ALERT AND ORIENTED THIS SHIFT COMMUNICATING APPROPRIATELY W STAFF. PT'S PACEMAKER WAS TURNED DOWN TO 30 BPM THIS SHIFT PER WHICH SHE SUSTAINED FOR SEVERAL HOURS UNTIL SHE BECAME 100% PACED AT 30 BPM FOR SEVERAL MINUTES SO PROVIDER CONTACTED AND RATE TURNED BACK TO 50. PACEMAKER SETTINGS RATE OF 50, OUTPUT OF 3.0, AND SENSING OF 2.0. BP SOFT FOR MAJORITY OF THE SHIFT HOWEVER BP WNL AND STABLE THIS AFTERNOON. SPO2 >92% ON 2-4LNC. PT AFEBRILE THIS SHIFT. PT TOLERATING PO INTAKE WELL THIS SHIFT EATING MOST OF HER MEALS. PT DENYING ANY PAIN OR NAUSEA THIS SHIFT. PT HAS PUREWICK IN PLACE CHANGED X2 THIS SHIFT BY THIS RN. PT ONLY VOIDING 350ML CLEAR LELE URINE THIS SHIFT. PT PLANNED FOR PACEMAKER PLACEMENT IN THE AM TO BE NPO AT MIDNIGHT. IV AND POWERGLIDE SALINE LOCKED. WILL REPORT TO ONCOMING RN.
--- NOTE | 2024-01-17 20:00 | NUR ---
ASSUMPTION OF CARE REPORT RECEIVED FROM DAYSHIFT RN. PT RESTING IN BED, ALERT AND ORIENTED. PT ANSWERS QUESTIONS APPROPRIATELY, FOLLOWS COMMADNS AND IS ABLE TO MAKE NEEDS KNOWN. PT MOVES ALL EXTREMITIES EQUALLY BILATERALLY. TEMPORARY TRANSVENOUS PACEMAKER IN PLACE TO [facility], 42 EXPOSED FROM INSERTION SITE, 38 INSERTED IN THE BODY, 63 AT SHEATH. SETTINGS: RATE 50, OUTPUT 3.0, SENSE 2.0. HR 50'S PACED, MAP >65 SBP 120-140'S. PT DENIES CP OR PRESSURE. PT ON 2L VIA NC, OXYGEN SATURATION >95%. ABDOMEN SOFT AND NONTENDER. PUREWICK AND ATTENDS IN PLACE WITH LELE URINE OUTPUT. POWERGLIDE TO TAY SL, PIV TO MARY SL. BED IN LOWEST POSITION, CALL LIGHT WITHIN REACH. CARE CONTINUES.
[2024-01-18] VITALS (55 sets, daily range): BP systolic 102–160; BP diastolic 46–82
[2024-01-18 04:12] LABS: BASOPHILS ABSOLUTE AUTO 0.04 K/mm3 (0.00-0.23); BASOPHILS PERCENT AUTO 1 % (0-2); EOSINOPHILS ABSOLUTE AUTO 0.22 K/mm3 (0.00-0.68); EOSINOPHILS PERCENT AUTO 3 % (0-6); Hematocrit 30.2 % (33.0-51.0); Hemoglobin 9.7 g/dL (11.5-16.0); IMMATURE GRAN ABSOLUTE AUTO 0.03 K/mm3 (0.00-0.10); IMMATURE GRAN PERCENT AUTO 0 % (0-1); LYMPHOCYTES PERCENT AUTO 22 % (21-46); MONOCYTES ABSOLUTE AUTO 0.77 K/mm3 (0.16-1.47); MONOCYTES PERCENT AUTO 10 % (4-13); Mean Corpuscular HGB 31.5 pg (26.0-34.0); Mean Corpuscular HGB Conc 32.1 g/dL (31.5-36.5); Mean Corpuscular Volume 98 fL (80-100); Mean Platelet Volume 9.5 fL (9.1-12.4); NEUTROPHILS ABSOLUTE AUTO 5.02 K/mm3 (1.96-9.15); NEUTROPHILS PERCENT AUTO 65 % (41-73); Platelet Count 122 K/mm3 (150-400); RDW Coefficient Variation 14.1 % (11.7-14.2); RDW Standard Deviation 50.4 fL (35.1-46.3); Red Blood Cell Count 3.08 M/mm3 (3.80-5.20); White Blood Cell Count 7.78 K/mm3 (4.00-11.30)
[2024-01-18 04:31] LABS: Albumin, Blood 2.7 g/dL (3.4-5.0); Albumin/Globulin Ratio 0.8 (0.8-1.8); Bilirubin, Total 0.9 mg/dL (0.1-1.0); Bun/Creatinine Ratio 28.9 (12.0-20.0); Calcium, Blood 8.3 mg/dL (8.5-10.1); Creatinine, Blood 0.69 mg/dL (0.40-1.00); Globulin, Blood 3.6 g/dL (2.2-4.0); Potassium, Blood 4.3 mmol/L (3.5-5.5); Total Protein, Blood 6.3 g/dL (6.4-8.2)
--- NOTE | 2024-01-18 05:38 | NUR ---
SHIFT SUMMARY PT COJNTINUES TO REST IN BED, SLEEPING BUT AROUSABLE. PT ANSWERS QUESTIOSN APPROPRIATELYM FOLLOWS COMMANDS AND IS ABLE TO MAKE NEEDS KNOWN. PT MOVES ALL EXTREMITIES EQUALLY BILATERALLY. HR 50-80'S AFIB WITH SOME PACED BEATS. TEMPORARY PACEMAKER IN PLACE TO [facility], 42 EXPOSED FROM INSERTION SITE, 38 INSERTED IN THE BODY, 63 AT THE SHE[place]. SETTINGS: RATE 50, OUTPUT 3.0, SENSE 2.0. PT DENIES CP OR PRESSURE, MAP >65. PT ON 2L NC, OXYGEN SATURATION >95%. ABDOMEN SOFT AND NONTENDER. PUREWICK IN APLCE WITH LELE URINE OUTPUT. POWERGLIDE TO TAY SL, PIV TO MARY SL. BED IN LOWEST POSITION, CALL LIGHT WITHIN REACH, CARE CONTINUES.
--- NOTE | 2024-01-18 08:32 | NUR ---
CARE OF PT ASSUMED AT 0700. BEDSIDE REPORT TAKEN. PT AWAKE, DROWSY. TEMP. TRANSVENOUS PACER REVIEWED W KAYLYNN RN. 63CM FROM [place], 42 FROM INSERTION SITE. RATE SET AT 50, OUTPUT 3, SENSE 2. PT IS IN AFIB W RATE 70-80 W OCCASIONAL PACER SPIKE. DRSG TO SITE C/D/I. PT DENIES C/O PAIN/SOB/NAUSEA. PT HAS FINE CRACKLES TO LLL, OTHERWISE CLEAR BUT DIMINISHED. 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 DR LOYD IN TO SEE PT THIS AM, FULL UPDATE GIVEN. LASIX TO BE HELD UNTIL VARIFIED W DR BAR. ECHO TO BE ORDERED. PT NPO FOR POSSIBLE PERM. PACE MAKER TODAY.
[2024-01-18] MEDS ORDERED: Furosemide 10 MG / ML 2ML Vial IV SCH (09:00)
--- NOTE | 2024-01-18 11:22 | NUR ---
Spiritual care visit conducted. Patient is lying in bed and laert. Patient tells that her Religion zane is important to her. She explains about the complications regarding her medical condition and her fears. Patient shares about her 3 dtrs and their locations and her desire to have everyone come and visit as soon as they are able. She asks if I would pray with her which I gladly do. Patient is tearful during the prayer but is quick to voice how meaningful the prayer was. I will continue to provide spiritual care, therapeutic listening and emotional support, as patient responds well to all interventions.
[2024-01-18] MEDS ORDERED: CeFAZolin Sodium 1000 mg Vial ONE (11:57)
[2024-01-18] MEDS ORDERED: NS 1,000 ML IV ONE ×2 (11:58→12:53)
[2024-01-18] MEDS ORDERED: Heparin Sodium 1000 Units/ML 10ML MDV ONE (11:58)
--- NOTE | 2024-01-18 12:42 | NUR ---
DR BAR IN TO CHECK ON PT, FULL UPDATE GIVEN. ECHO COMPLETED. G BEDBATH GIVEN. TRANSVENOUS PACER W/O CHANGES. PT REMAINS IN AFIB W OCC PACER SPIKE. RATE 60-80'S, BP STABLE. LASIX TO BE GIVEN AFTER PROCEDURE. PT TO DIRECTOR RECREATION CENTER AT 1243.
[2024-01-18] MEDS ORDERED: Midazolam HCl 1MG / ML 2ML Vial ONE (12:52)
[2024-01-18] MEDS ORDERED: FentaNYL Citrate 50 MCG/ML 2 ML Injection ONE (12:52)
[2024-01-18] MEDS ORDERED: NS 100 ML IV ONE (12:53)
[2024-01-18] MEDS ORDERED: CeFAZolin Sodium 2,000 MG VIAL ONE (12:53)
--- NOTE | 2024-01-18 15:45 | NUR ---
PT BACK FROM CUT PRESSMAN S/P PACEMAKER PLACEMENT AT 1448. BEDSIDE REPORT TAKEN. TRANSVENOUS PACER REMOVED IN CUT PRESSMAN, DRSG TO RIGHT IJ C/D/I. PACEMAKER DRSG TO LEFT CHEST WALL C/D/I. SMALL ICE PACK PLACED. PT GIVEN INSTRUCTIONS NOT TO RAISE ARMS. PT AWAKE, DENIES C/O PAIN.
--- NOTE | 2024-01-18 20:59 | NUR ---
ASSUMPTION OF CARE BEDSDIE SHIFT REPORT RECEIVED FROM DAYSHIFT RN. PT RESTINGIN BED, ALERT AND ORIENTED. PT ASNWERS QUESTIONS APPROPRIATELY, FOLLOWS COMMANDS, AND IS ABLE TO MAKE NEEDS KNOWN. PT MOVES ALL EXTEREMITIES EQUALLY BILATERALLY. PT INSTRUCTED TO KEEP LEFT ARM AT SIDE D/T PACEMAKER PLACEMENT. HR 60-70'S A FIB WITH SOME PACED BEATS, MAP >65. PT ON 2L VIA NC, OXYGEN SATURATION >95%. PT DENIES CP, PRESSURE OR SOB. ABDOMEN SOFT NONTENDER, BOWEL TONES ACTIVE IN ALL FOUR QUADRANTS. PIV TO MARY SL. POWERGLIDE TO TAY SL. DOPAMIONE INFILTRATION SITE TO LEFT FOREARM STABLE, PT DENIES PAIN. DRESSING IN PLACE TO LEFT CHEST WHERE PACEMAKER WAS INSTERED, DRESSING C/D/I. PUREWICK AND ATTENDS IN PLACE PATENT DRAINING LELE URINE. BED IN LOWEST POSITION, CALL LIGHT WITHIN REACH, CARE CONTINUES.
[2024-01-18] MEDS ORDERED: CeFAZolin Sodium 2,000 MG in NS 50 ML IV SCH (21:00)
[2024-01-18] MEDS ORDERED: NS 250 ML IV PRN (21:25)
[2024-01-18] MEDS ORDERED: ALEN70 PO (23:42)
[2024-01-18] MEDS ORDERED: MELATONIN5 M1 PO (23:49)
[2024-01-18] MEDS ORDERED: MULTI-VITAMIN1 EAC2 PO (23:52)
[2024-01-18] MEDS ORDERED: ONDA4 PO (23:53)
[2024-01-19] VITALS (8 sets, daily range): BP systolic 108–143; BP diastolic 47–69
[2024-01-19 04:45] LABS: Hematocrit 31.4 % (33.0-51.0); Hemoglobin 10.4 g/dL (11.5-16.0); Mean Corpuscular HGB 31.9 pg (26.0-34.0); Mean Corpuscular HGB Conc 33.1 g/dL (31.5-36.5); Mean Corpuscular Volume 96 fL (80-100); Mean Platelet Volume 9.4 fL (9.1-12.4); Platelet Count 137 K/mm3 (150-400); RDW Coefficient Variation 13.9 % (11.7-14.2); Red Blood Cell Count 3.26 M/mm3 (3.80-5.20); White Blood Cell Count 9.97 K/mm3 (4.00-11.30)
[2024-01-19 05:04] LABS: Bun/Creatinine Ratio 23.7 (12.0-20.0); Calcium, Blood 8.4 mg/dL (8.5-10.1); Creatinine, Blood 0.72 mg/dL (0.40-1.00)
--- NOTE | 2024-01-19 05:48 | NUR ---
SHIFT SUMMARY PT CONTINUES TO REST IN BED, SLEEPING BUT AROUSABLE. PT ANSWERS QUESTIONS APPROPRIATELY, FOLLOWS COMMANDS AND IS ABLE TO MAKE NEEDS KNOWN. PT MOVES ALL EXTREMITIES EQUALLY BILATERALLY. HR 60-80'S AFIB WITH SOME PACED BEATS, MAP >65. PT DENIES CP OR PRESSURE. ACCESS SITE FOR PACEMAKER PLACEMENT WITH DRESSING INTACT TO LEFT CHEST, DRESSING C/D/I, PT DENIES PAIN. PT ON 2L NC, OXYGEN SATURATION >95%, DENIES SOB. ABDOMEN SOFT NONTENDER, BOWEL TONES ACTIVE IN ALL FOUR QUADRANTS. PUREWICK AND ATTENDS IN PLACE DRAINING YELLOW URINE. PIV TO AMRY SL, POWERGLIDE TO TAY INFUISNG NS TKO. BED IN LOWEST POSITION, CALL LIGHT WITHIN REACH, CARE CONTINUES.
--- NOTE | 2024-01-19 07:51 | NUR ---
CARE OF PT ASSUMED AT 0700, BEDSIDE REPORT TAKEN, PACEMAKER DRSG SITE ASSESSED. PT AWAKE, ALERT, DENIES C/O PAIN, SOB. DRSG TO LEFT CHEST WALL C/D/I. PT IS PACED 100% AT 50 THIS AM AND NOW AT 60. DR BAR IN TO SEE PT, UPDATE GIVEN. PER DR BAR PACEMAKER IS SET FOR 50BPM AT NIGHT AND 60BPM DURING DAY. OKAY TO BE DISCHARGED HOME PER DR BAR. HE RECOMMENDS DISCONTINUING DIGOXIN AND STARTED METOPROLOL SUCC 25MG DAILY, RESTARTING ELLIQUIS ON THE , KEFLEX PO X 3DAYS STARTING TONIGHT. PT TO WEAR SLING FOR 3 DAYS. PT HAS WOUND CHECK APPOINTMENT ON January AT 2 AND PACER CLINIC APPOINTMENT MARCH 14 AT 2. O2 WAS AT 2L LAST NIGHT AND REMOVED THIS AM, SATS 90%-95% ON RA. FINE CRACKLES TO LLL, PT DENIES SOB. BP STABLE W SBP 130'S. LASIX TO BE GIVEN THIS AM.
--- NOTE | 2024-01-19 08:48 | NUR ---
DR LOYD IN TO SEE PT, UPDATE GIVEN. INTERROGATION OF PACEMAKER COMPLETE. DR STALEY IN TO SEE PT, UPDATE GIVEN. PLAN IS TO DISCHARGE PT HOME TODAY WITH HOME HEALTH. PT IS VERY ANXIOUS TO GO HOME.
[2024-01-19] MEDS ORDERED: CEPH500 PO (12:14)
[2024-01-19] MEDS ORDERED: VISBIOME 112.51 EACH PO (12:14)
[2024-01-19] MEDS ORDERED: METO25ER PO (12:15)
--- NOTE | 2024-01-19 12:31 | NUR ---
DISCHARGE ORDERS RECEIVED FROM DR LOYD. DR LODY CALLED REGARDING CLARIFICATION OF KEFLEX. PT TO TAKE 1000MG BID X 3 DAYS. MEDICATIONS FAXED TO [facility] PER PT REQUEST. PT HAS FOLLOW UP APPOINTMENT WITH PACEMAKER CLINIC AND A FOLLOW APPOINTMENT FOR A WOUND CHECK. DR. MEZA HAS AGREED TO SEE PT A NEW PATIENT; APPOINTMENT TO BE MADE.
--- NOTE | 2024-01-19 14:47 | NUR ---
PHYSICAL THERAPY IS RECOMMENDING SNF AFTER THE EVALUATION. PT'S FAMILY AND NURSE AT [facility] NOTIFIED BY CARE MANAGEMENT. PT UPDATED BY CARE MANAGAMENT AND AGREES TO SNF. PT UP IN CHAIR W SBA; WALKER AND GAIT BELT. PT ABLE TO USE CALL LIGHT APPROPRIATLY BUT HAD DIFFICULTY FOLLOWING VERBAL CUES WITH P.T. SLING TO LEFT ARM TO HELP REMIND PATIENT NOT TO RAISE OR PUT WEIGHT ON THAT ARM. PRESSURE DRSG CHANGED TO GAUZE AND TEGADERM; STERI STRIPS DRY AND INTACT W/O SWELLING.
[2024-01-19] MEDS ORDERED: Cephalexin Monohydrate 500 MG Cap PO SCH ×3 (17:00→21:00)
[2024-01-19] MEDS ORDERED: Metoprolol Succinate 25 MG TABCR PO SCH (17:00)
[2024-01-20 04:51] VITALS: BP 122/60
--- NOTE | 2024-01-20 07:04 | NUR ---
SHIFT SUMMARY PATIENT ALERT AND ORIENTED X4. 2 ASSIST TO BEDSIDE COMMODE. HAD NO COMPLAINTS OF PAIN OR SHORTNESS OF BREATH. ON ROOM AIR WITH SPO2 >95%. VITAL SIGNS STABLE, PACED ON TELE. NO ACUTE ISSUES NOTED OVERNIGHT. WILL CONTINUE TO MONITOR. CALL LIGHT WITHIN REACH
[2024-01-20 08:18] VITALS: BP 136/52
[2024-01-20] MEDS ORDERED: Metoprolol Succinate 25 MG TABCR PO SCH (09:00)
--- NOTE | 2024-01-20 09:21 | NUR ---
AM NOTE: PATIENT ALERT AND ORIENTED X3-4. FORGETFUL AT TIMES. SOFT SPOKEN. BED ALARM IN PLACE. UP WITH 1-2 PERSON ASSISTANCE TO BSC. DENIES NUMBNESS/TINGLING. TELE SHOWING AFIB, PACED WITH HR 50-60'S. DENIES CHEST PAIN/PRESSURE/PALPITATIONS. BP STABLE. LEFT CHEST WALL PACER WITH MINIMAL BRUISING. LEFT SHOULDER SLING IN PLACE. THIS RN REINFORECED EDUCATION ON LEFT SHOULDER PRECAUTIONS. RIGHT ARM EDEMA AND BLE EDEMA NOTED. LEFT CHEST WALL DRESSING C/D/I. PPP. DENIES ABDOMINAL PAIN/NAUSEA. EATING AND VOIDING WNL. ATTENDS IN PLACE. OCCASIONAL INCONTINENCE. UP TO BSC WITH 1-2 PERSON ASSIST. BOWEL TONES PRESENT. ON ROOM AIR SATING ABOVE 95%. LUNGS SOUNDS CLEAR AND DIM IN BASES. DENIES SOB/COUGH. EVEN AND UNLABORED RESPIRATIONS. CALL LIGHT IN REACH. BED ALARM ON FOR SAFETY. PATIENT USING CALL LIGHT THIS AM FOR ASSISTANCE. DENIES NEEDS AT THIS TIME.
[2024-01-20 11:01] VITALS: BP 91/59
--- NOTE | 2024-01-20 11:17 | NUR ---
[facility] UPDATED WITH PATIENT PERMISSION. PLAN FOR PATIENT TO DISCHARGE AT 1200 TODAY [facility].
--- NOTE | 2024-01-20 11:47 | NUR ---
DISCHARGE: NO ACUTE CHANGES, SEE PREVIOUS NOTES. PATIENT LEFT UNIT VIA WHEELCHAIR TRANSPORT WITH ALL PERSONAL BELONGINGS INCLUDING CELLPHONE, DISCHARGE PACKET, PACER CARD, AND OXYCODONE PRESCRIPTION. TARIK BELLO CALLED BY THIS RN AND REPORT WAS GIVEN. THIS RN DISCUSSED FOLLOW UP APPOINTMENTS AND PACER PRECAUTIONS WITH TARIK BELLO WELL MEDICATIONS. POWERGLIDE IN LEFT UPPER ARM REMOVED.
== END 2024-01-20 11:45 | DRG 244 ==
LOC: ER 16:58 → ICUE 19:08 → PCU 01-19 17:38
PROVIDERS: Emergency Medicine; Family Medicine Adult Medicine; Student in an Organized Health Care Education/Training Program; ADMIT Internal Medicine
PROC: 0JH604Z Insertion of Pacemaker, Single Chamber into Chest Subcutaneous Tissue and Fascia, Open Approach (ICD-10-PCS; principal; 2024-01-18)
PROC: 02HK3JZ Insertion of Pacemaker Lead into Right Ventricle, Percutaneous Approach (ICD-10-PCS; 2024-01-18)
PROC: 02PA3MZ Removal of Cardiac Lead from Heart, Percutaneous Approach (ICD-10-PCS; 2024-01-18)
DX: I44.2 Atrioventricular block, complete (principal); I35.0 Nonrheumatic aortic (valve) stenosis; I48.19 Other persistent atrial fibrillation; I25.10 Atherosclerotic heart disease of native coronary artery without angina pectoris; K21.9 Gastro-esophageal reflux disease without esophagitis; I44.7 Left bundle-branch block, unspecified; I45.5 Other specified heart block; I10 Essential (primary) hypertension; E78.5 Hyperlipidemia, unspecified; F32.A Depression, unspecified; D64.9 Anemia, unspecified; D69.6 Thrombocytopenia, unspecified; E87.5 Hyperkalemia; M81.0 Age-related osteoporosis without current pathological fracture; Z86.73 Personal history of transient ischemic attack (TIA), and cerebral infarction without residual deficits; Z87.81 Personal history of (healed) traumatic fracture; Z95.2 Presence of prosthetic heart valve; Z98.890 Other specified postprocedural states; Z79.899 Other long term (current) drug therapy; Z79.01 Long term (current) use of anticoagulants; Z79.891 Long term (current) use of opiate analgesic; I25.2 Old myocardial infarction; Z95.5 Presence of coronary angioplasty implant and graft
CPT/HCPCS: 33207; 33210; 36415; 71045; 76937; 80047; 80048; 80053; 80162; 83735; 84132; 84484; 85014; 85025; 85027; 85730; 92953; 93005; 93010; 93306; 94760; 94762; 96365-59; 96367-59; 96375-59; 97110; 97162; 97530; 99152; 99153; 99285-25; A9270; C1751; C1786; C1894; C1898; J0461; J0612; J0690; J1265; J1644; J1815; J1940; J2250; J2760; J3010; J7030; J7040; J7050

== ENCOUNTER → 2024-04-09 | Outpatient (CLI) | payer OTHER | END | disposition home or self-care (01) | LOC: LAB 23:30 → LAB SHORT 23:30 | DX: N39.0 Urinary tract infection, site not specified (principal) ==

== ENCOUNTER → 2024-05-26 | Outpatient (CLI) | payer OTHER ==
[~2024-05-26] MED LIST changes: +ALEN70 PO; +BISA10S PR; +CEPH500 PO; +DULCOLAX400 MG/5 M PO; +MASOPHEN325 M4 PO; +MELATONIN5 M1 PO; +METO25ER PO; +MULTI-VITAMIN1 EAC2 PO; +ONDA4 PO; +SULTRIDS PO; +URSO300 PO; +VISBIOME 112.51 EACH PO; +Vitamin D1000 UNI1 PO
[2024-05-26 20:38] LABS: Bacterial Vaginosis PCR Negative (NEGATIVE); Candida Group, PCR NOT DETECTED (NOT DETECT); Candida glabrata-krusei, PCR NOT DETECTED (NOT DETECT)
== END | disposition home or self-care (01) ==
LOC: LAB SHORT 17:41 → LAB 17:41
PROVIDERS: Internal Medicine
DX: N89.8 Other specified noninflammatory disorders of vagina (principal)
CPT/HCPCS: 87481; 87661; 87801

== ENCOUNTER → 2024-11-17 | Outpatient (CLI) | payer OTHER ==
[2024-11-17 15:11] LABS: Source, Urine Clean Catch
[2024-11-17 16:27] LABS: Appearance, Urine Clear (Clear); Bilirubin, Urine Neg (Neg); Blood, Urine Neg (Neg); Glucose Qualitative, Urine Neg (Neg); Ketones, Urine Neg (Neg); Leukocyte Esterase, Urine 1+ (Neg); Nitrite, Urine Neg (Neg); Protein, Urine Neg (Neg); Urobilinogen, Urine NORM (Normal)
[2024-11-17 16:56] LABS: Color, Urine Pale Yellow (P-Yellow)
[2024-11-17 16:57] LABS: Amorphous Light (0-Heavy); Bacteria Mod /hpf; Red Blood Cells, Urine 0-2 /hpf (0-2); Squamous Epithelial Cells Rare /hpf (Few); White Blood Cells, Urine 0-2 /hpf (0-5)
== END | disposition home or self-care (01) ==
LOC: LAB SHORT 15:06 → LAB 15:06
PROVIDERS: Internal Medicine
DX: N39.0 Urinary tract infection, site not specified (principal)
CPT/HCPCS: 81001; 87086

== ENCOUNTER 2025-11-01 17:41 | Emergency (ER) | payer OTHER ==
[~2025-11-01] VITALS: Ht 162.6 cm; Wt 80.7 kg
[2025-11-01 18:33] LABS: BASOPHILS ABSOLUTE AUTO 0.06 K/mm3 (0.00-0.23); BASOPHILS PERCENT AUTO 1 % (0-2); EOSINOPHILS ABSOLUTE AUTO 0.27 K/mm3 (0.00-0.68); EOSINOPHILS PERCENT AUTO 5 % (0-6); Hematocrit 35.7 % (33.0-51.0); Hemoglobin 11.4 g/dL (11.5-16.0); IMMATURE GRAN ABSOLUTE AUTO 0.01 K/mm3 (0.00-0.10); IMMATURE GRAN PERCENT AUTO 0 % (0-1); LYMPHOCYTES ABSOLUTE AUTO 1.19 K/mm3 (0.84-5.20); LYMPHOCYTES PERCENT AUTO 24 % (21-46); MONOCYTES ABSOLUTE AUTO 0.71 K/mm3 (0.16-1.47); MONOCYTES PERCENT AUTO 14 % (4-13); Mean Corpuscular HGB Conc 31.9 g/dL (31.5-36.5); Mean Corpuscular Volume 110 fL (80-100); NEUTROPHILS ABSOLUTE AUTO 2.81 K/mm3 (1.96-9.15); NEUTROPHILS PERCENT AUTO 56 % (41-73); NRBC ABSOLUTE 0.00 K/mm3 (0.00-0.02); NRBC Auto 0.0 /100 WBC (0.0-0.2); Platelet Count 145 K/mm3 (150-400); RDW Coefficient Variation 14.3 % (11.7-14.2); RDW Standard Deviation 57.4 fL (35.1-46.3)
[2025-11-01 18:53] LABS: Alanine Aminotransfer (ALT/SGP 19.0 U/L (12-78); Albumin, Blood 3.3 g/dL (3.4-5.0); Albumin/Globulin Ratio 0.7 (0.8-1.8); Anion Gap 11.0 mmol/L (3-11); Aspartate Aminotrans (AST/SGOT 29.0 U/L (12-37); Bilirubin, Total 1.0 mg/dL (0.1-1.0); Blood Urea Nitrogen 29.0 mg/dL (8-24); CO2, Blood 25.0 mmol/L (21-32); Calcium, Blood 9.0 mg/dL (8.5-10.1); Chloride, Blood 104.0 mmol/L (98-108); Creatinine, Blood 1.22 mg/dL (0.40-1.00); Globulin, Blood 4.9 g/dL (2.2-4.0); Glucose, Blood 91.0 mg/dL (70-99); Potassium, Blood 4.8 mmol/L (3.5-5.5); Sodium, Blood 135.0 mmol/L (136-145); Total Protein, Blood 8.2 g/dL (6.4-8.2)
[2025-11-01 20:03] LABS: Source, Urine Voided
[2025-11-01 20:14] LABS: Bilirubin, Urine Neg (Neg); Color, Urine Yellow (P-Yellow); Glucose Qualitative, Urine Neg (Neg); Ketones, Urine Neg (Neg); Leukocyte Esterase, Urine Neg (Neg); Protein, Urine 1+ (Neg); Specific Gravity, Urine 1.010 (1.003-1.022); Urobilinogen, Urine NORM (Normal)
[2025-11-02 02:30] VITALS: BP 105/79
== END 2025-11-02 02:45 | disposition home or self-care (01) ==
LOC: ER 17:41
PROVIDERS: Emergency Medicine
DX: R40.0 Somnolence (principal); R60.0 Localized edema; R79.89 Other specified abnormal findings of blood chemistry; I48.91 Unspecified atrial fibrillation; I25.10 Atherosclerotic heart disease of native coronary artery without angina pectoris; I25.2 Old myocardial infarction; E78.5 Hyperlipidemia, unspecified; Z95.2 Presence of prosthetic heart valve; Z86.73 Personal history of transient ischemic attack (TIA), and cerebral infarction without residual deficits; Z79.01 Long term (current) use of anticoagulants; Z79.83 Long term (current) use of bisphosphonates; Z79.899 Other long term (current) drug therapy
CPT/HCPCS: 80053; 83880; 84484; 85025; 93005; 93010; 99284-25

== ENCOUNTER 2025-11-10 06:57 | Emergency (ER) | payer OTHER ==
[~2025-11-10] VITALS: Ht 165.1 cm; Wt 81.7 kg
[2025-11-10 07:18] LABS: Calcium, Ionized (POC) 1.05 mmol/L (1.10-1.46); Chloride (POC) 105 mmol/L (98-108); Creatinine (POC) 2.2 mg/dL (0.6-1.0); Glucose (ISTAT POC) 160 mg/dL (70-99); Hematocrit (POC) 43.0 % (36.0-46.0); Hemoglobin (POC) 14.6 g/dL (12.0-16.0); Potassium (POC) 5.4 mmol/L (3.5-5.5); Sodium (POC) 135 mmol/L (135-148); Total CO2 (POC) 16 mmol/L (21-32)
== END 2025-11-10 13:39 | disposition home or self-care (01) ==
LOC: ER 06:57
PROVIDERS: Emergency Medicine
DX: I46.9 Cardiac arrest, cause unspecified (principal); E78.5 Hyperlipidemia, unspecified; Z86.73 Personal history of transient ischemic attack (TIA), and cerebral infarction without residual deficits; Z79.899 Other long term (current) drug therapy
CPT/HCPCS: 31500; 80047; 85014; 92950; 99285-25